=== PATIENT | female | born 1965 ===

== ENCOUNTER 2023-10-09 10:59 | Inpatient (IN) ==
[2023-10-09] MEDS ORDERED: Nicotine GUM 2MG FRUIT FLAVOR PO PRN (12:43)
[2023-10-09] MEDS ORDERED: Al Hydrox/Mg Hydrox/Simet LIQ 30 ML UDC PO PRN (12:43)
[2023-10-09] MEDS: Nicotine Lozenge mini 2 MG LOZNG.MINI MT PRN (15:27)
[2023-10-10] MEDS: OLANZapine 5 mg TAB *ODT PO PRN (10:15)
[2023-10-10] MEDS: OLANZapine 5 mg TAB *ODT ONE (10:17)
[2023-10-10] MEDS: Nicotine GUM 4MG FRUIT FLAVOR PO ONE (16:51)
[2023-10-10] MEDS: Nicotine GUM 4MG FRUIT FLAVOR PO PRN (17:55)
[2023-10-11 08:42] LABS: HDL Cholesterol 39.7 mg/dL
== END 2023-10-14 13:54 | disposition home or self-care (01) | DRG 751 ==
LOC: BSU 12:56
PROVIDERS: ADMIT Psychiatry & Neurology Psychiatry; ATTEND Student in an Organized Health Care Education/Training Program